=== PATIENT | male | born 1945 | race Caucasian/White ===

== ENCOUNTER 2019-05-26 02:13 | Emergency (ER) | payer BC, MEDICARE ==
[2019-05-26] MEDS ORDERED: Doxycycline 100 MG Cap ONE (02:30)
[2019-05-26 02:39] VITALS: BP 151/86; PULSE 94
[2019-05-26] MEDS ORDERED: cefTRIAXone 1 GM Vial IM ONE (02:50)
[2019-05-26] MEDS ORDERED: cefTRIAXone 1 GM Vial ONE (02:52)
--- NOTE | 2019-05-26 03:57 | ER ---
HISTORY OF PRESENT ILLNESS: A 73-year-old male who comes in with his with complaints of coughing, some headaches, head congestion. He states he has mucus that comes out into the tear ducts into both eyes and will film over his eyes. This has been ongoing for about a week. He has been occasionally only coughing up some green initial phlegm. He brought them in today for evaluation. The patient denies any problems with chest pain or shortness of breath. He states he does have a history of an occasional sinus infection. PAST MEDICAL HISTORY: Includes sinusitis and hypertension. OBJECTIVE: GENERAL APPEARANCE: The patient is awake and alert. No obvious distress. VITAL SIGNS: Reviewed and he is afebrile. Blood pressure 151/86. HEENT: Ears, TMs are slightly bulging with some yellow fluid behind them. Nares are patent. The patient does have frontal sinus tenderness with palpation. Oral mucous membranes moist. Posterior pharynx shows minimal drainage. NECK: Supple. LUNGS: Clear. SKIN: Warm and dry. DIAGNOSIS: Sinusitis. TREATMENT PLAN: Rocephin 1 g will be given IM. The patient will be started on doxycycline 100 mg b.i.d. for 10 days. He is to go home and rest for a couple of days, take his medication and followup as p.r.n. CRS/MODL /[id number]
== END 2019-05-26 03:13 | disposition home or self-care (01) ==
LOC: LB.ED 02:13
DX: J32.9 Chronic sinusitis, unspecified (principal); I10 Essential (primary) hypertension
CPT/HCPCS: 96372; 99284; A9270-GY; J0696